=== PATIENT | male | born 1930 | race Caucasian/White ===

== ENCOUNTER 2016-12-11 09:08 | Inpatient (IN) | payer BC ==
[~2016-12-11] VITALS: Ht 172.7 cm; Wt 82.0 kg
[2016-12-11] VITALS (10 sets, daily range): BP systolic 99–168; BP diastolic 49–75
[~2016-12-11 09:08] MED LIST: AMLODIPINE BESYL5 MG PO; ASPIR 8181 M1 PO; CALCIUM ACETAT667 MG PO; FERREX 150150 MG PO; FUROSEMIDE40 MG PO; LANTUS 10100 UNITS/ SC; PROCRIT10000 UNI1 SC; QUINAPRIL HCL20 MG PO; RENA-VITE RX T1 EACH PO; RENO CAPS SOFTGE1 MG PO; ZEMPLAR1 MCG PO; ZOCOR20 MG PO
[2016-12-11 12:42] LABS: ANION GAP 9 MEQ/L (2-14); CHLORIDE 100 MEQ/L (99-109); POTASSIUM 4.4 MEQ/L (3.7-5.4); SAMPLE HEMOLYSIS CHECK 0; SAMPLE ICTERIC CHECK 0; SAMPLE LIPEMIA CHECK 0; SODIUM 141 MEQ/L (136-147)
[2016-12-11 12:48] LABS: GFR ESTIMATE (CALCULATED) 15 mL/min/; GLUCOSE 134 mg/dL (70-99); UREA NITROGEN (BUN) 53 mg/dL (9-23)
[2016-12-11 13:25] LABS: METH RESISTANT S AUREUS PCR NEGATIVE (NEGATIVE)
[2016-12-11 13:29] LABS: PROBE CHECK PASS; SPECIMEN PROCESSING CONTROL PASS
[2016-12-11] MEDS ORDERED: PERCOCET 5/31 TABLET PO (15:46)
[2016-12-11 18:25] LABS: POINT-OF-CARE METER ID UU14174217
[2016-12-11 18:34] LABS: METH RESISTANT S AUREUS PCR NEGATIVE (NEGATIVE)
[2016-12-11 18:39] LABS: PROBE CHECK PASS; SPECIMEN PROCESSING CONTROL PASS
[2016-12-11 22:19] LABS: POINT-OF-CARE METER ID UU14174217
[2016-12-12] VITALS: BP 91/34
[2016-12-12 01:00] VITALS: BP 93/36
[2016-12-12 03:00] VITALS: BP 91/32
[2016-12-12 05:00] VITALS: BP 112/47
[2016-12-12 07:00] VITALS: BP 94/43
[2016-12-12 09:00] VITALS: BP 117/53
== END 2016-12-12 09:48 | disposition home or self-care (01) | DRG 37 ==
LOC: 2SOUTH 09:08 → 4WEST 11:43 → 2SOUTH 11:43 → 4WEST 16:50
PROVIDERS: Surgery
DX: I65.21 Occlusion and stenosis of right carotid artery (principal); N18.6 End stage renal disease; I12.0 Hypertensive chronic kidney disease with stage 5 chronic kidney disease or end stage renal disease; E11.22 Type 2 diabetes mellitus with diabetic chronic kidney disease; E78.5 Hyperlipidemia, unspecified; Z86.73 Personal history of transient ischemic attack (TIA), and cerebral infarction without residual deficits; Z99.2 Dependence on renal dialysis; Z87.891 Personal history of nicotine dependence
CPT/HCPCS: 80048; 82948; 87641; 93005; C1768; J0690; J1644; J1815; J2250; J2720; J2795; J3010